=== PATIENT | female | born 1960 | race Asian ===

== ENCOUNTER 2020-11-25 | Inpatient (IN) | payer BC | END 2020-11-28 16:55 | disposition home or self-care (01) | DRG 335 | PROVIDERS: ADMIT Surgery | PROC: 0DTJ4ZZ Resection of Appendix, Percutaneous Endoscopic Approach (ICD-10-PCS; principal; 2020-11-25) | PROC: 0DNU4ZZ Release Omentum, Percutaneous Endoscopic Approach (ICD-10-PCS; principal; 2020-11-25) | DX: K35.32 Acute appendicitis with perforation, localized peritonitis, and gangrene, without abscess (principal); A41.9 Sepsis, unspecified organism; J98.11 Atelectasis; E80.4 Gilbert syndrome; Z20.822 Contact with and (suspected) exposure to COVID-19; K66.0 Peritoneal adhesions (postprocedural) (postinfection); E87.6 Hypokalemia; R73.9 Hyperglycemia, unspecified; H40.9 Unspecified glaucoma; K21.9 Gastro-esophageal reflux disease without esophagitis; M19.90 Unspecified osteoarthritis, unspecified site; Z79.899 Other long term (current) drug therapy; Z90.710 Acquired absence of both cervix and uterus; Z87.42 Personal history of other diseases of the female genital tract; Z98.42 Cataract extraction status, left eye; Z98.41 Cataract extraction status, right eye; Z98.890 Other specified postprocedural states; Z88.1 Allergy status to other antibiotic agents | CPT/HCPCS: 71046; 80048; 80053; 81003; 83605; 83735; 84100; 84145; 85025; 87040; 87635; 88304; 99285 ==